=== PATIENT | male | born 1980 | race Hispanic/Latino ===

== ENCOUNTER 2021-08-31 09:55 | Emergency (ER) | payer OTHER ==
[~2021-08-31] VITALS: Ht 167.6 cm; Wt 97.5 kg
[2021-08-31 10:00] VITALS: BP 128/81
[2021-08-31] MEDS ORDERED: KETOROLAC 60 MG VIAL (30MG/ML) ONE (10:28)
[2021-08-31 10:30] LABS: APPEARANCE,URINE Clear (CLEAR); BILIRUBIN,URINE Negative (NEGATIVE); COLOR,URINE Yellow (YELLOW); GLUCOSE, URINE (UA) Negative (NEGATIVE); KETONES,URINE Negative (NEGATIVE); LEUKOCYTE ESTERASE ,URINE Negative (NEGATIVE); NITRATE,URINE Negative (NEGATIVE); OCCULT BLOOD,URINE Negative (NEGATIVE); PROTEIN,URINE Negative (NEGATIVE); UROBILINOGEN,URINE 0.2 mg/dL (0.2-1.0)
[2021-08-31] MEDS ORDERED: KETOROLAC 60 MG VIAL (30MG/ML) IM SCH (10:30)
[2021-08-31] MEDS ORDERED: DICL50TA9 PO (11:29)
[2021-08-31] MEDS ORDERED: META800T72 PO (11:29)
== END 2021-08-31 12:06 | disposition home or self-care (01) ==
LOC: EDH 09:55
DX: S39.012A Strain of muscle, fascia and tendon of lower back, initial encounter (principal); Z79.1 Long term (current) use of non-steroidal anti-inflammatories (NSAID); X58.XXXA Exposure to other specified factors, initial encounter; Y93.89 Activity, other specified; Y92.89 Other specified places as the place of occurrence of the external cause; Y99.8 Other external cause status
CPT/HCPCS: 72100; 81003; 96372; 99284; J1885